=== PATIENT | female | born 1995 | race African-American/Black ===

== ENCOUNTER 2018-03-08 04:15 | Emergency (ER) | payer OTHER ==
[~2018-03-08] VITALS: Ht 167.6 cm; Wt 71.8 kg
[~2018-03-08 04:15] MED LIST: LORTAB 5-325 M1 EACH PO; MOTRIN600 MG PO; PEN-VEE K,VEET500 MG PO
[2018-03-08] MEDS ORDERED: MEDROL DOSEPAK4 MG PO (04:34)
[2018-03-08 05:37] VITALS: BP 117/80
== END 2018-03-08 05:43 | disposition home or self-care (01) ==
LOC: EME 04:15
DX: L50.9 Urticaria, unspecified (principal); T36.0X5A Adverse effect of penicillins, initial encounter
CPT/HCPCS: 99281; 99283; J7512